=== PATIENT | female | born 1975 | race African-American/Black ===

== ENCOUNTER 2022-02-22 10:41 | Emergency (ER) | payer OTHER, SELFPAY ==
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
[2022-02-22 10:53] VITALS: BP 154/87; PULSE 63; RESP 16; TEMP 36.6; O2SAT 100
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
== END 2022-02-22 11:34 | disposition home or self-care (01) ==
PROVIDERS: Emergency Provider Nurse Practitioner
DX: S39.012A Strain of muscle, fascia and tendon of lower back, initial encounter (principal); V49.40XA Driver injured in collision with unspecified motor vehicles in traffic accident, initial encounter; E66.9 Obesity, unspecified; Z68.41 Body mass index [BMI] 40.0-44.9, adult
CPT/HCPCS: 72100; 72170; 99214; G0463

== ENCOUNTER 2022-12-16 11:32 | Outpatient (CLI) | payer OTHER, SELFPAY ==
--- NOTE | ~2022-12-16 | US_ITS ---
EXAMINATION: US venous doppler [facility] DATE: 12/16/2022 12:12 INDICATION: Left lower limb swelling TECHNIQUE: Bell scale images without and with compression and Doppler images of the left lower extrem ity veins were obtained. COMPARISON: None FINDINGS: The left common femoral vein, profunda femoral vein, femoral vein, popliteal vein, peroneal trunk, posterior tibial veins, and greater saphenous vein are patent. IMPRESSION: 1. Patent left lower extremity veins. No evidence of deep venous thrombosis. Reviewed, dictated and finalized at location L.
== END 2022-12-16 11:33 | disposition home or self-care (01) ==
PROVIDERS: Visit Provider Orthopaedic Surgery
DX: M79.89 Other specified soft tissue disorders (principal)
CPT/HCPCS: 93971

== ENCOUNTER 2023-12-06 12:07 | Inpatient (IN) | payer OTHER, SELFPAY ==
--- NOTE | ~2023-12-06 | US_ITS ---
EXAMINATION: US soft tissue LE LT DATE: 12/07/2023 09:04 INDICATION: Left calf infection. TECHNIQUE: Multiple grayscale and Doppler ultrasound images of the left lower limb were obtained. COMPARISON: None FINDINGS: There is hyperechoic subcutaneous fat in left calf. There is a 5 x 5 x 3 mm subcutaneous hy poechoic mass in this area. IMPRESSION: 1. Hyperechoic subcutaneous fat in left calf, consistent with cellulitis. A 5 mm subcutaneous mass in this area may be hematoma or phlegmon/abscess. Reviewed, dictated and finalized at location A. IMPRESSION: 1. Hyperechoic subcutaneous fat in left calf, consistent with cellulitis. A 5 m m subcutaneous mass in this area may be hematoma or phlegmon/abscess.
[2023-12-06 12:08] VITALS: BP 147/111; PULSE 94; RESP 20; TEMP 36.6; O2SAT 100
[2023-12-06] MEDS: SODIUM CHLORIDE 0.9% IV 1,000 ML 150 ML IV CONT (12:58)
[2023-12-06 13:06] LABS: Basophils Percent Auto 0.3 % (0.2-1.2); Eosinophils Absolute Auto 0.8 K/mm3 (0-0.3); Eosinophils Percent Auto 8.7 % (0-4.4); Hematocrit 36.4 % (37.0-47.0); Hemoglobin 11.6 g/dL (12.0-15.0); Immature Granulocyte Absolute 0.02 K/mm3 (0.00-0.031); Immature Granulocyte Percent A 0.2 % (0-0.5); Lymphocytes Percent Auto 19.6 % (18.3-44.2); Mean Corpuscular HGB Conc 31.9 g/dl (32-36); Mean Corpuscular Hemoglobin 30.9 pg (26-34); Mean Corpuscular Volume 96.8 fl (80-100); Mean Platelet Volume 11.8 fl (7.4-10.4); Monocytes Absolute Auto 0.6 K/mm3 (0.1-0.6); Neutrophils Absolute Auto 5.6 K/mm3 (1.3-6.7); Neutrophils Percent Auto 64.2 % (45.5-73.1); Platelet Count Result 250 k/mm3 (150-375); Red Blood Count 3.76 M/mm3 (4.2-5.4); Red Cell Distribution Width 13.2 % (11.5-14.5); White Blood Count 8.7 K/mm3 (4.5-10.0)
[2023-12-06 13:09] LABS: Appearance Urine Clear (Clear); Bilirubin Urine Negative (Negative); Blood Urine Negative (Negative); Color Urine Dark Yellow (Yellow); Glucose Urine UA Negative (Negative); Ketones Urine Negative (Negative); Leukocyte Esterase Ur Negative LEU/UL (Negative); Nitrate Urine Negative (Negative); Protein Urine Negative (Negative); Specific Grav Ur 1.023 (1.001-1.035); pH Urine 5.5 (5.0-9.0)
[2023-12-06 13:11] LABS: Add Urine Microscopic? NO
[2023-12-06 13:25] LABS: Lactic Acid Reflex 0.8 mmol/L (0.7-2.0)
[2023-12-06 13:43] LABS: Alanine Aminotransferase 22 U/L (6-35); Albumin Level 4.3 g/dL (3.5-5.1); Alkaline Phosphatase 63 U/L (38-126); Anion Gap 7 mmol/L (4-12); Aspartate Amino Transferase 29 U/L (14-36); Bilirubin,Total 0.7 mg/dL (0.2-1.3); Blood Urea Nitrogen 14 mg/dL (7-17); CRP 1.2 mg/dL (<1.0); Calcium 8.8 mg/dL (8.4-10.2); Carbon Dioxide 26 mmol/L (22-30); Chloride 107 mmol/L (98-107); Estimated CRCL calculation 98 ml/min; Estimated Glomerular Filt Rate > 60; Glucose 79 mg/dL (65-110); Potassium 4.1 mmol/L (3.4-5.0); Sodium 140 mmol/L (137-145)
--- NOTE | 2023-12-06 15:06 | ED.GENADULT ---
HPI - General Adult General Chief complaint: Wound/Laceration Stated complaint: infection to leg Time Seen by Provider: 12/06/23 12:15 Source: patient Mode of arrival: ambulatory Limitations: no limitations History of Present Illness HPI narrative: 47-year-old otherwise healthy here with a complaint of pain, swelling, redness the left calf for pain 60s. She is not which showed with she was bit or are stung about 6 days ago while she was sitting on her porch . She states she went to Urgent care yesterday and was started on Doxy ,was advised to come to ER if the swelling or redness getting worse. She denies any chills but has fever. Onset (ago): day(s) (6) Location: lower extremity (left) Radiation: non-radiation Severity: moderate Quality: aching Pain Consistency: constant Relieving factors: none Exacerbating factors: none Associated symptoms: denies other symptoms Related Data Home Medications Medication Instructions Recorded Confirmed No Home Medications 05/04/22 02/17/23 Allergies Allergy/AdvReac Type Severity Reaction Status Date / Time Penicillins Allergy Intermediate Hives Verified 12/06/23 12:14 erythromycin base AdvReac Intermediate Nausea Verified 12/06/23 12:14 Review of Systems Review of Systems: All systems reviewed & are unremarkable except as noted in HPI and below Constitutional: Constitutional: Reports no additional constitutional complaints Eyes: Eyes: Reports no additional eye complaints ENT: Reports system reviewed and no additional complaints, except as documented Cardiovascular: Cardiovascular: Reports no additional cardiovascular complaints Respiratory: Respiratory: Reports no additional respiratory complaints Gastrointestinal: Gastrointestinal: Reports no additional gastrointestinal complaints Musculoskeletal: Musculoskeletal: Reports as per HPI Integumentary/Breasts: Skin/Breast: Reports as per HPI Neurologic: Reports system reviewed and no additional complaints, except as documented Psychiatric: Psychiatric: Reports no additional psychiatric complaints Endocrine: Endocrine: Reports no additional endocrine complaints [facility] Past Medical History Medical History Left knee pain Obesity Surgical History Surgical History History of bariatric surgery Gastric sleeve History of breast augmentation 2009 History of hysterectomy History of tubal ligation Family History Family History Father Malignant neoplasm of prostate Grandparent Breast cancer Heart disease Other Breast cancer Social History Social History Smoking status: Never smoker Alcohol intake: never Substance use: never Lack of Transportation: No Lack of Food: Never True Current Housing: I Have Housing Concerned About Future Housing: No Difficulty Paying Gas/Electric Bills: No Difficulty Paying for Meds: No Currently Unemployed: No Education: Bachelor's Degree Difficulty w/ Childcare or Family Care: No Living arrangements: with family Occupation/Education: occupation 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 HEAD: Normocephalic, atraumatic. EYES: PERRLA and EOMI. ENT: Nares clear, no rhinorrhea or epistaxis. Mucous membranes moist. NECK: Supple. CHEST: Clear to auscultation. No respiratory distress. HEART: Regular rate and rhythm. No murmur heard. Normal peripheral pulses. ABDOMEN: Soft, nontender, nondistended, normal active bowel sounds. EXTREMITIES: Normal range of motion. No edema. examination of the left calf marked redness and swelling
[2023-12-06] MEDS: VANCOMYCIN 1,500 MG/NS 500 ML 1,500 MG/500 ML BAG 333.33 MG IVPB (15:40)
[2023-12-06] MEDS: SODIUM CHLORIDE 0.9% IV 1,000 ML 100 ML IV CONT (15:41)
[2023-12-06 15:48] VITALS: BP 170/97; PULSE 65; RESP 17; TEMP 37.6; O2SAT 99
[2023-12-06] MEDS: ACETAMINOPHEN 325 MG TABLET 650 MG PO (15:53)
--- NOTE | 2023-12-06 16:29 | PM.IMHP ---
H&P: HPI History of Present Illness Date/Time: 12/06/23 17:45 Chief Complaint: Left leg infection. Narrative: This is a very pleasant previously healthy 47-year-old female who presented to the emergency department for evaluation of a left leg infection. The patient provides the following history. Last Tuesday she was sitting out on a friend's porch on a wooden chair and she wonders if she may have been bitten or stung by something as she noticed a small blister developing on the back of her left calf not long thereafter. She may have scraped her leg on some exposed would is well but she cannot say for sure. Tuesday the blister popped and was pretty benign looking. Since that time however she has developed swelling, redness, and a black area where the blister once was. She reports a subjective fever and generalized malaise as well. Yesterday she was seen at urgent care was prescribed doxycycline. Despite taking 2 doses the area has continued to increase in size and she came in for evaluation. She has not noticed any discharge from the area. She has no known history of multidrug resistant organisms. She is uncertain of her last tetanus shot. No nausea or vomiting. In the ED: She was afebrile on arrival. Blood pressures have been running in the 150s over 80s. Labs were significant for WBC count of 8.7, hemoglobin 11.6, CRP 1.2. She was given a dose of vancomycin and she is being admitted in this setting for treatment. Review of Systems Review of Systems: 12 systems were reviewed and are negative except for as per HPI. [facility] Past Medical History Medical History (Updated 12/06/23 @ 23:41 by Caity Sweeney PA-C) No significant past medical history Surgical History Surgical History History of bariatric surgery Gastric sleeve History of breast augmentation (2008) History of hysterectomy History of tubal ligation Family History Family History Father Malignant neoplasm of prostate Grandparent Breast cancer Heart disease Other Breast cancer Social History Social History (Updated 12/06/23 @ 23:42 by Caity Sweeney PA-C) Social History: Surrogate medical decision maker: Khris Mccallguson, daughter. Code status: Full code. 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 Spiritual care concerns: No Meds Home Medications and Allergies Home Medications Medication Instructions Recorded Confirmed Type No Home Medications 05/04/22 12/06/23 History Allergies Allergy/AdvReac Type Severity Reaction Status Date / Time Penicillins Allergy Intermediate Hives Verified 12/06/23 12:14 erythromycin base AdvReac Intermediate Nausea Verified 12/06/23 12:14 NSAIDS (Non-Steroidal AdvReac Other Verified 12/06/23 15:40 Anti-Inflamma Vital Signs Vital Signs - 24 hr 12/06/23 12:08 12/06/23 15:48 Temperature 97.8 F 99.7 F H Pulse Rate 94 65 Respiratory Rate 20 17 Blood Pressure 147/111 H 170/97 H Pulse Oximetry 100 99 Oxygen Delivery Room Air Exam Narrative: General: Well-developed, nontoxic-appearing female in the semi-Galloway position in bed. Weight: 106.1 kg. BMI: 35.6. HEENT: PERRL, EOMI. Sclera anicteric. Oral mucosa moist. Oropharynx clear. Neck: Supple. Respiratory: Lungs are clear to auscultation bilaterally. Cardiovascular: Regula
[2023-12-06 17:00] VITALS: BP 155/88; PULSE 63; RESP 18; TEMP 37.1; O2SAT 100
[2023-12-06 20:00] VITALS: PULSE 63; RESP 18; O2SAT 100
[2023-12-06 22:00] VITALS: BP 150/82; PULSE 70; RESP 16; TEMP 36.3; O2SAT 100
[2023-12-07 01:00] VITALS: BMI 37.7
[2023-12-07] MEDS: VANCOMYCIN 1,500 MG/NS 500 ML 1,500 MG/500 ML BAG 125 MG IVPB (03:12)
[2023-12-07] MEDS: TETANUS,DIPHTHERIA,AC PERTUSSIS ADULT (0.5 ML) BOOSTRIX IM (03:16)
[2023-12-07 06:00] VITALS: BP 133/65; PULSE 77; RESP 16; TEMP 36.7; O2SAT 100
[2023-12-07 06:20] LABS: Basophils Percent Auto 0.2 % (0.2-1.2); Eosinophils Absolute Auto 0.7 K/mm3 (0-0.3); Eosinophils Percent Auto 8.5 % (0-4.4); Hematocrit 33.2 % (37.0-47.0); Hemoglobin 10.5 g/dL (12.0-15.0); Immature Granulocyte Absolute 0.02 K/mm3 (0.00-0.031); Immature Granulocyte Percent A 0.2 % (0-0.5); Lymphocytes Absolute Auto 2.38 K/mm3 (0.9-3.2); Lymphocytes Percent Auto 28.4 % (18.3-44.2); Mean Corpuscular HGB Conc 31.6 g/dl (32-36); Mean Corpuscular Hemoglobin 30.9 pg (26-34); Mean Corpuscular Volume 97.6 fl (80-100); Mean Platelet Volume 11.7 fl (7.4-10.4); Monocytes Absolute Auto 0.7 K/mm3 (0.1-0.6); Monocytes Percent Auto 7.8 % (2.6-8.5); Neutrophils Absolute Auto 4.6 K/mm3 (1.3-6.7); Neutrophils Percent Auto 54.9 % (45.5-73.1); Platelet Count Result 218 k/mm3 (150-375); Red Cell Distribution Width 13.2 % (11.5-14.5); White Blood Count 8.4 K/mm3 (4.5-10.0)
[2023-12-07 06:33] LABS: Anion Gap 6 mmol/L (4-12); Blood Urea Nitrogen 9 mg/dL (7-17); Calcium 8.6 mg/dL (8.4-10.2); Carbon Dioxide 24 mmol/L (22-30); Chloride 110 mmol/L (98-107); Estimated CRCL calculation 101 ml/min; Estimated Glomerular Filt Rate > 60; Glucose 79 mg/dL (65-110); Magnesium 1.7 mg/dL (1.6-2.3); Potassium 3.9 mmol/L (3.4-5.0); Sodium 140 mmol/L (137-145)
[2023-12-07] MEDS: HYDROcodone/acetaminophen (*CRX) 5-325 MG TABLET 1 TAB PO (07:46)
[2023-12-07] MEDS: ENOXAPARIN 40 MG/0.4 ML SYRINGE SUB-Q (09:24)
--- NOTE | 2023-12-07 11:38 | PM.IMPN ---
Progress Note: A&P Assessment and Plan (1) Cellulitis of left leg: Code(s): L03.116 - Cellulitis of left lower limb Status: Acute Plan This is a pleasant 47-year-old female with no known PMH who presents with complaint of left leg infection. Six days prior to admission the patient was sitting in front porch on a wooden chair she may have been bitten or scraped her skin at the calf muscle on the left leg. He knows a blister which then popped open. 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 The swelling and pain worsened rapidly. Patient presents to [place] ER on 12/06/2023 for further evaluation. # cellulitis of the left lower extremity -asked nurse to pam the borders. The luminance of the erythema is improved compared to photos shown by the patient. Total surface area however the same. Continue vancomycin. Venous Dopplers unremarkable for DVT. Soft tissue ultrasound hyperechoic subcutaneous fat in the left calf muscle consistent with cellulitis. A 5 mm subcutaneous mass in this area suggested to be hematoma or phlegmon/abscess. Unable to palpate this on exam and it is very small so we continue to monitor this. -home when 30-50% of erythema has resolved the patient's symptomatology has improved. Monitor for evidence of sepsis. Chronic Conditions -obesity: Counseling provided F/E/N: saline lock IV, replace lytes as needed, regular diet GI prophylaxis: Not indicated DVT prophylaxis: Lovenox 40 mg subQ q.day Lines: Peripheral IV Code Status: Full code Dispo: Stable on medical floor. Medication reconciliation obtained via the following: Nurse obtained on admission. Social Drivers of Health -Living arrangements and functional status: Lives at home with her daughter. -Patient was screened for food insecurity, housing instability, transportation needs, utility difficulties, and interpersonal safety. No needs identified -High risk for readmission: No Agents of Abuse -Illicit drug abuse: Denies -ETOH abuse: Denies -Tobacco/nicotine: Denies -Energy drinks: Denies Heart Failure MIPS: Does not have heart failure Note to the patient: The 21st Century Cures Act makes medical notes like these available to patients in the interest of transparency. Please be advised this is a medical document. It is intended for gdkl-rd-abah communication. It is written in medical language and may contain unfamiliar abbreviations or verbiage. Components may appear blunt or direct. Medical documents are intended to carry relevant information, facts as evident, and the clinical opinion of the practitioner at the time of the encounter. This note was generated by a speech recognition system and may contain inherent errors or omissions not intended by the user. Grammatical errors, random word insertions, deletions, pronoun errors and incomplete sentences are occasional consequences of this technology due to software limitations. Not all errors are caught or corrected. If there are questions or concerns about the content of this note or information contained within the body of this dictation they should be addressed directly with author for clarification. The file time of this note does not necessarily represent the time the patient was seen. Subjective Date/time seen: 12/07/23 11:38 Interval history: No acute overnight events. Patient feels her redness is improved. He reports that is still painful. Denies drainage from the wound which is now crusted over Review of Systems Review of Systems: All systems reviewed & are unremarkable except as noted in HPI and below (Subjective) Exam Const: General: comfortable and no acute distress Other: Obese. A&O x3. Eyes: Pupils: Equal, round and reactive pupils present Neck: Neck: supple Resp: Effort & Inspection: normal respiratory effort Auscultation: clear to aus
[2023-12-07 14:00] VITALS: BP 139/82; PULSE 79; RESP 18; TEMP 36.4; O2SAT 100
[2023-12-07] MEDS: VANCOMYCIN 1,500 MG/NS 500 ML 1,500 MG/500 ML BAG 150 MG IVPB (15:51)
[2023-12-07] MEDS: diphenhydrAMINE HCl CAP 25 MG CAPSULE (18:34)
[2023-12-07 20:07] VITALS: BP 150/76; PULSE 67; RESP 16; TEMP 36.9; O2SAT 100
[2023-12-08 03:48] LABS: Basophils Percent Auto 0.2 % (0.2-1.2); Eosinophils Absolute Auto 0.9 K/mm3 (0-0.3); Eosinophils Percent Auto 10.5 % (0-4.4); Hematocrit 32.6 % (37.0-47.0); Hemoglobin 10.7 g/dL (12.0-15.0); Immature Granulocyte Absolute 0.02 K/mm3 (0.00-0.031); Immature Granulocyte Percent A 0.2 % (0-0.5); Lymphocytes Absolute Auto 2.34 K/mm3 (0.9-3.2); Lymphocytes Percent Auto 27.8 % (18.3-44.2); Mean Corpuscular HGB Conc 32.8 g/dl (32-36); Mean Corpuscular Hemoglobin 31.3 pg (26-34); Mean Corpuscular Volume 95.3 fl (80-100); Mean Platelet Volume 11.3 fl (7.4-10.4); Monocytes Absolute Auto 0.6 K/mm3 (0.1-0.6); Monocytes Percent Auto 7.6 % (2.6-8.5); Neutrophils Absolute Auto 4.5 K/mm3 (1.3-6.7); Neutrophils Percent Auto 53.7 % (45.5-73.1); Platelet Count Result 228 k/mm3 (150-375); Red Blood Count 3.42 M/mm3 (4.2-5.4); Red Cell Distribution Width 13.2 % (11.5-14.5); White Blood Count 8.4 K/mm3 (4.5-10.0)
[2023-12-08 04:04] LABS: Anion Gap 6 mmol/L (4-12); Blood Urea Nitrogen 9 mg/dL (7-17); Calcium 8.6 mg/dL (8.4-10.2); Carbon Dioxide 25 mmol/L (22-30); Chloride 109 mmol/L (98-107); Estimated CRCL calculation 114 ml/min; Estimated Glomerular Filt Rate > 60; Glucose 82 mg/dL (65-110); Magnesium 1.8 mg/dL (1.6-2.3); Potassium 3.7 mmol/L (3.4-5.0); Sodium 140 mmol/L (137-145)
[2023-12-08 04:09] LABS: Vancomycin Trough 10.5 ug/mL (10.0-20.0)
[2023-12-08] MEDS: ACETAMINOPHEN 325 MG TABLET 650 MG PO (04:12)
[2023-12-08] MEDS: diphenhydrAMINE HCl CAP 25 MG CAPSULE PO (04:13)
[2023-12-08] MEDS: VANCOMYCIN 1,500 MG/NS 500 ML 1,500 MG/500 ML BAG 150 MG IVPB (05:20)
[2023-12-08 05:24] VITALS: BP 161/90; PULSE 70; RESP 16; TEMP 36.7; O2SAT 100
--- NOTE | 2023-12-08 09:25 | PM.IMPN ---
Progress Note: A&P Assessment and Plan (1) Cellulitis of left leg: Code(s): L03.116 - Cellulitis of left lower limb Status: Acute Plan This is a pleasant 47-year-old female with no known PMH who presents with complaint of left leg infection. Six days prior to admission the patient was sitting in front porch on a wooden chair she may have been bitten or scraped her skin at the calf muscle on the left leg. He knows a blister which then popped open. 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 The swelling and pain worsened rapidly. Patient presents to [place] ER on 12/06/2023 for further evaluation. cellulitis of the left lower extremity -asked nurse to pam the borders. The luminance of the erythema is improved compared to photos shown by the patient. Total surface area however the same. Continue vancomycin. Venous Dopplers unremarkable for DVT. Soft tissue ultrasound hyperechoic subcutaneous fat in the left calf muscle consistent with cellulitis. A 5 mm subcutaneous mass in this area suggested to be hematoma or phlegmon/abscess. Unable to palpate this on exam and it is very small so we continue to monitor this. -home when 30-50% of erythema has resolved the patient's symptomatology has improved. Monitor for evidence of sepsis. 12/07: Cellulitis has subsided significantly, no active drainage, continue doxycycline 100 mg b.i.d. p.o., and add cefdinir 300 mg b.i.d. p.o. for 5 more Chronic Conditions -obesity: Counseling provided F/E/N: saline lock IV, replace lytes as needed, regular diet GI prophylaxis: Not indicated DVT prophylaxis: Lovenox 40 mg subQ q.day Lines: Peripheral IV Code Status: Full code Dispo: Stable on medical floor. Subjective Date/time seen: 12/08/23 09:25 Interval history: No acute overnight events. Cellulitis continue to improve, patient is afebrile, blood pressure stable, patient does not have active drainage Exam Narrative: General: Well-developed, nontoxic-appearing female in the semi-Galloway position in bed. Weight: 106.1 kg. BMI: 35.6. HEENT: PERRL, EOMI. Sclera anicteric. Oral mucosa moist. Oropharynx clear. Neck: Supple. Respiratory: Lungs are clear to auscultation bilaterally. Cardiovascular: Regular rate and rhythm with S1-S2. Gastrointestinal: Abdomen is soft, nontender, and nondistended with positive bowel sounds. Skin: Warm and dry. Approximately dime-sized black eschar on the posterior left calf, the surrounding edema, erythema, and warmth have subsided The area is exquisitely tender to palpation. No drainage or area of fluctuance seen. Extremities: No cyanosis, clubbing, or edema. Radial and pedal pulses intact. Neurological: Alert. Cranial nerves 2-12 are grossly intact. No gross focal deficits to casual conversation. Psychiatric: Pleasant and cooperative with normal mood and affect. Judgment and insight intact. Objective Data Vital Signs Vital Signs: Vital Signs - 24 hr 12/07/23 14:00 12/07/23 20:07 12/08/23 05:24 Temperature 97.5 F L 98.5 F 98.0 F Pulse Rate 79 67 70 Respiratory Rate 18 16 16 Blood Pressure 139/82 150/76 H 161/90 H Pulse Oximetry 100 100 100 Intake/Output Intake/Output: Intake & Output 12/05/23 12/06/23 12/07/23 12/08/23 23:59 23:59 23:59 23:59 Intake Total 400 3145 400 Balance 400 3145 400 Meds/Results Medications: Active Medications Generic Name Dose Route Start Last Admin Trade Name Freq PRN Reason Stop Dose Admin Acetaminophen 650 mg 12/06/23 15:16 12/08/23 04:12 Acetaminophen 325 Mg Tablet PO 650 mg Q4H PRN Administration Mild Pain (1-3) or Fever Hydrocodone Bitart/Acetaminophen 1 tab 12/06/23 23:45 12/07/23 07:46 Hydrocodone/Acetaminophen (*Crx) 5-325 Mg Tablet PO 1 tab Q6H PRN Administration Pain Rated 4-6 Diphenhydramine HCl 25 mg 12/07/23 18:30 12/08/23 04:13 Diphenhydramine Hcl Cap 25 Mg Capsule PO 25 mg
--- NOTE | 2023-12-08 14:07 | PM.DS ---
DS: Admitting Diagnosis Discharge Date 12/07 Admitting Diagnosis (1) Cellulitis of left leg: Code(s): L03.116 - Cellulitis of left lower limb DS: Discharge Diagnosis Discharge Diagnosis (1) Cellulitis of left leg: Code(s): L03.116 - Cellulitis of left lower limb Status: Acute DS: Summary Hospital Course Hospital Course: This is a pleasant 47-year-old female with no known PMH who presents with complaint of left leg infection. Six days prior to admission the patient was sitting in front porch on a wooden chair she may have been bitten or scraped her skin at the calf muscle on the left leg. He knows a blister which then popped open. She presented to an urgent care day [employer] and was prescribed doxycycline. The swelling and pain worsened rapidly. Patient presents to [facility] on 12/06/2023 for further evaluation. cellulitis of the left lower extremity -asked nurse to pam the borders. The luminance of the erythema is improved compared to photos shown by the patient. Total surface area however the same. Continue vancomycin. Venous Dopplers unremarkable for DVT. Soft tissue ultrasound hyperechoic subcutaneous fat in the left calf muscle consistent with cellulitis. A 5 mm subcutaneous mass in this area suggested to be hematoma or phlegmon/abscess. Unable to palpate this on exam and it is very small so we continue to monitor this. -home when 30-50% of erythema has resolved the patient's symptomatology has improved. Monitor for evidence of sepsis. 12/07: Cellulitis has subsided significantly, no active drainage, continue home med doxycycline 100 mg b.i.d. p.o., and add cefdinir 300 mg b.i.d. p.o. for 5 more. advice pt to see PCP in 1 wk for f/u Chronic Conditions -obesity: Counseling provided Time Spent with Patient Time attestation: Total time spent providing and/or coordinating discharge services: Exam Narrative: General: Well-developed, nontoxic-appearing female in the semi-Galloway position in bed. Weight: 106.1 kg. BMI: 35.6. HEENT: PERRL, EOMI. Sclera anicteric. Oral mucosa moist. Oropharynx clear. Neck: Supple. Respiratory: Lungs are clear to auscultation bilaterally. Cardiovascular: Regular rate and rhythm with S1-S2. Gastrointestinal: Abdomen is soft, nontender, and nondistended with positive bowel sounds. Skin: Warm and dry. Approximately dime-sized black eschar on the posterior left calf, the surrounding edema, erythema, and warmth have subsided The area is exquisitely tender to palpation. No drainage or area of fluctuance seen. Extremities: No cyanosis, clubbing, or edema. Radial and pedal pulses intact. Neurological: Alert. Cranial nerves 2-12 are grossly intact. No gross focal deficits to casual conversation. Psychiatric: Pleasant and cooperative with normal mood and affect. Judgment and insight intact. DS: Data Data Completed and Pending Labs on day of discharge: Labs from last 24 hours 12/08/23 03:43 WBC 8.4 RBC 3.42 L Hgb 10.7 L Hct 32.6 L MCV 95.3 MCH 31.3 MCHC 32.8 RDW 13.2 Plt Count 228 MPV 11.3 H Immature Gran % (Auto) 0.2 Neut % (Auto) 53.7 Lymph % (Auto) 27.8 [place] % (Auto) 7.6 Eos % (Auto) 10.5 H Baso % (Auto) 0.2 Lymph # (Auto) 2.34 [place] # (Auto) 0.6 Eos # (Auto) 0.9 H Baso # (Auto) 0.0 Abs Immat Gran (auto) 0.02 Absolute Neuts (auto) 4.5 Absolute Nucleated RBC 0.000 Nucleated RBC % 0.0 Sodium 140 Potassium 3.7 Chloride 109 H Carbon Dioxide 25 Anion Gap 6 BUN 9 Creatinine 0.70 Estim Creat Clear Calc 114 Estimated GFR > 60 Glucose 82 Calcium 8.6 Magnesium 1.8 Vancomycin Trough 10.5 Discharge Plan Discharge Attending physician on discharge: Mau Novoa Discharging Clinician: Mau Novoa Anticipated Discharge Date/Time: 12/08/23 14:04 Patient Disposition: Home, Self-Care Activity: may shower Diet: regular Patient Instructions: Antibiotic Form, Celluliti
== END 2023-12-08 14:20 | disposition home or self-care (01) | DRG 603 ==
LOC: ANHED 15:15 → ANH3MEDSUR 16:08
PROVIDERS: Physician Assistant; Admitting Provider General Practice; Emergency Provider Family Medicine; Visit Provider Hospitalist
DX: L03.116 Cellulitis of left lower limb (principal); E66.9 Obesity, unspecified; R03.0 Elevated blood-pressure reading, without diagnosis of hypertension; Z98.84 Bariatric surgery status; Z90.710 Acquired absence of both cervix and uterus; Z68.35 Body mass index [BMI] 35.0-35.9, adult; Z88.0 Allergy status to penicillin
CPT/HCPCS: 36415; 76882; 80048; 80053; 80202; 81003; 83605; 83735; 85025; 86140; 90715; 96360; 99285; A9270; J1650; J3370; J7030